=== PATIENT | female | born 1975 | race Caucasian/White ===

== ENCOUNTER 2017-01-01 08:56 | Day surgery (SDC) | payer MEDICAID ==
[2017-01-01] MEDS ORDERED: LIDOCAINE 1% 5 ML SDV ONE (09:20)
[2017-01-01] MEDS ORDERED: LR 1,000 ML IV ONE (09:32)
[2017-01-01] MEDS ORDERED: LIDOCAINE 1% 5 ML SDV ID PRN (09:32)
[2017-01-01] MEDS ORDERED: fentaNYL 100 MCG/2 ML INJ ONE (10:50)
[2017-01-01] MEDS ORDERED: MIDAZOLAM 2 MG/2 ML VIAL ONE (10:50)
[2017-01-01] MEDS ORDERED: PROPOFOL/EMULSION 500 MG/50 ML BOTTLE IV ONE (10:50)
--- NOTE | 2017-01-01 12:08 | GPN ---
[f rep st] PROCEDURE NOTE DATE OF PROCEDURE: 01/01/2017 PROCEDURE: Esophagogastroduodenoscopy with biopsy, endoscopic ultrasound. INDICATION: Madeleine is a 41-year-old female who presents for evaluation of recurrent pancreatitis and right upper quadrant abdominal pain. She presents for further evaluation. CONSENT: Risks, benefits, and alternatives of the procedure were discussed in great detail with the patient. Risk of infection, bleeding, perforation, pancreatitis, and sedation were discussed. All questions answered. Informed consent was obtained. MEDICATIONS: Propofol. Please see Anesthesiology record for details. ESTIMATED BLOOD LOSS: Insignificant. ESOPHAGOGASTRODUODENOSCOPY EXAMINATION: An Olympus upper endoscope was introduced into the mouth and advanced to the esophagus. The proximal and mid esophagus were normal in appearance. The patient was noted to have an irregular Z line, and biopsies were taken. The stomach was entered and closely examined, including retroflexed views of angularis, cardia, and fundus. A small hiatal hernia was noted. The mucosa in the antrum and the body of the stomach were erythematous in a patchy distribution. Biopsies were taken. The duodenal bulb and second portion of duodenum were normal in appearance. 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 ENDOSCOPIC ULTRASOUND: The Olympus linear echoendoscope was inserted into the mouth and advanced to the second portion of the duodenum. The pancreas was carefully examined from the uncinate process of the tail where the spleen was seen. The pancreatic parenchyma had lobulations in the body and head. Dilated side branches and hyperechoic foci were noted throughout the whole pancreas. The pancreatic duct wall was hyperechoic. The main pancreatic duct was not dilated. No mass or cystic lesion was seen. The gallbladder was seen and was normal without stone or wall thickening . The common bile duct measured 3mm and was without stone stricture or stenosis. No suspicious periportal, peripancreatic or celiac nodes were appreciated. IMPRESSION: 1. Gastritis, status post biopsy. 2. Irregular Z-line status post biopsy 3. Biopsies taken for celiac sprue. 3. Parenchymal changes in the pancreas suggestive of chronic pancreatitis. RECOMMENDATIONS: 1. Await biopsy results. 2. Follow up in the office in 6 weeks. /[id number]/MODL MTDD
== END 2017-01-01 13:20 | disposition home or self-care (01) ==
LOC: FSGY 08:56
PROVIDERS: ATTEND Internal Medicine Gastroenterology
PROC: 0DB38ZX Excision of Lower Esophagus, Via Natural or Artificial Opening Endoscopic, Diagnostic (ICD-10-PCS; principal; 2017-01-01 10:30)
PROC: 0DB98ZX Excision of Duodenum, Via Natural or Artificial Opening Endoscopic, Diagnostic (ICD-10-PCS; principal; 2017-01-01 10:30)
PROC: 0DB68ZX Excision of Stomach, Via Natural or Artificial Opening Endoscopic, Diagnostic (ICD-10-PCS; principal; 2017-01-01 10:30)
PROC: 0DJ08ZZ Inspection of Upper Intestinal Tract, Via Natural or Artificial Opening Endoscopic (ICD-10-PCS; principal; 2017-01-01 10:30)
DX: K86.1 Other chronic pancreatitis (principal); K29.70 Gastritis, unspecified, without bleeding; R10.11 Right upper quadrant pain; K22.9 Disease of esophagus, unspecified; K44.9 Diaphragmatic hernia without obstruction or gangrene; R19.7 Diarrhea, unspecified; E11.9 Type 2 diabetes mellitus without complications; J45.909 Unspecified asthma, uncomplicated
CPT/HCPCS: J2250; J2704; J3010